=== PATIENT | male | born 1965 | race Caucasian/White ===

== ENCOUNTER → 2020-09-24 09:02 | Outpatient (CLI) | payer OTHER | END | disposition home or self-care (01) | LOC: LAB 09:02 | DX: U07.1 COVID-19 (principal) ==

== ENCOUNTER 2020-09-25 08:04 | Outpatient (CLI) | payer OTHER | END 2020-09-25 15:00 | disposition home or self-care (01) | LOC: LAB 08:04 | PROVIDERS: ATTEND Emergency Medicine Pediatric Emergency Medicine | DX: Z03.818 Encounter for observation for suspected exposure to other biological agents ruled out (principal); Z20.822 Contact with and (suspected) exposure to COVID-19 ==

== ENCOUNTER → 2020-11-17 07:00 | Outpatient (CLI) | payer OTHER | END | disposition home or self-care (01) | LOC: LAB 09-29 09:53 | PROVIDERS: ATTEND Emergency Medicine Pediatric Emergency Medicine | DX: Z03.818 Encounter for observation for suspected exposure to other biological agents ruled out (principal) ==

== ENCOUNTER → 2020-12-01 08:49 | Outpatient (CLI) | payer OTHER | END | disposition home or self-care (01) | LOC: LAB 08:49 | PROVIDERS: ATTEND Emergency Medicine Pediatric Emergency Medicine | DX: Z03.818 Encounter for observation for suspected exposure to other biological agents ruled out (principal) ==

== ENCOUNTER 2020-12-12 06:35 | Outpatient (CLI) | payer OTHER | END 2020-12-12 13:05 | disposition home or self-care (01) | LOC: LAB 06:35 | PROVIDERS: ATTEND Emergency Medicine Pediatric Emergency Medicine | DX: Z03.818 Encounter for observation for suspected exposure to other biological agents ruled out (principal) ==

== ENCOUNTER 2020-12-15 08:24 | Outpatient (CLI) | payer OTHER | END 2020-12-15 08:26 | disposition home or self-care (01) | LOC: LAB 08:24 | PROVIDERS: ATTEND Emergency Medicine Pediatric Emergency Medicine | DX: Z03.818 Encounter for observation for suspected exposure to other biological agents ruled out (principal) ==